=== PATIENT | male | born 1970 | race African-American/Black ===

== ENCOUNTER → 2020-09-22 | Outpatient (CLI) | payer OTHER ==
--- NOTE | 2020-09-22 17:56 | RAD ---
Right ankle 2 views INDICATION: Right ankle pain. FINDINGS: Lateral plate and screw construct fixation of a distal fibular fracture is present along with fixatio n screws in the medial malleolus. There is exuberant bony callus formation around the fracture lines with fusion of the distal tibia and fibula along the syndesmosis. There is osteophytic spurring at th e tibiotalar joint with joint space narrowing. The soft tissues show minimal swelling. 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 No fracture, malalignment or aggressive bony lesions. Electronically signed by: Shea Coronado MD (09/22/2020 5:54 PM) [id number]
== END ==
LOC: RAD 10:00
PROVIDERS: ATTEND Physician Assistant
DX: M19.071 Primary osteoarthritis, right ankle and foot (principal); M79.89 Other specified soft tissue disorders
CPT/HCPCS: 73600